=== PATIENT | female | born 1970 | race Native Hawaiian/Other Pacific Islander ===

== ENCOUNTER 2016-11-28 08:31 | Emergency (ER) | payer OTHER ==
[~2016-11-28] VITALS: Ht 157.5 cm; Wt 59.0 kg
[2016-11-28 08:33] VITALS: BP 127/77
[2016-11-28] MEDS ORDERED: LISI10TA2 PO (08:36)
[2016-11-28] MEDS ORDERED: GENTAMICIN 0.3% OPHTH SOL 5 ML BTL OS ONE (09:15)
[2016-11-28] MEDS ORDERED: GENT3OPD OD (09:20)
== END 2016-11-28 09:26 | disposition home or self-care (01) ==
LOC: M ED 08:31
DX: H10.32 Unspecified acute conjunctivitis, left eye (principal); I10 Essential (primary) hypertension; Z79.899 Other long term (current) drug therapy